=== PATIENT | female | born 1990 | race Caucasian/White ===

== ENCOUNTER 2018-05-04 12:35 | Emergency (ER) | payer BC, OTHER ==
[~2018-05-04] VITALS: Ht 162.6 cm; Wt 57.8 kg
[~2018-05-04 12:35] MED LIST: FAMO20TA7 PO
[2018-05-04 13:28] LABS: BASOPHILS # (AUTO) 0.02 x10^3/uL (0-0.1); BASOPHILS % (AUTO) 0 % (0-1); EOSINOPHILS # (AUTO) 0.07 x10^3/uL (0-0.4); EOSINOPHILS % (AUTO) 1 % (1-7); LYMPHOCYTES # (AUTO) 1.46 x10^3/uL (1-3.4); LYMPHOCYTES % (AUTO) 28 % (22-44); MD NO; MEAN CORPUSCULAR HEMOGLOBIN 31.6 pg (27.0-34.8); MEAN CORPUSCULAR VOLUME 90.2 fL (80-100); MONOCYTES # (AUTO) 0.27 x10^3/uL (0.2-0.8); MONOCYTES % (AUTO) 5 % (2-9); NEUTROPHILS # (AUTO) 3.49 x10^3/uL (1.8-6.8); NEUTROPHILS % (AUTO) 66 % (42-75); PLATELET COUNT 168 x10^3/uL (130-400); RED BLOOD COUNT 4.42 x10^6/uL (3.82-5.3); RED CELL DISTRIBUTION WIDTH 12.3 % (9.6-15.2)
[2018-05-04 13:39] LABS: ALANINE AMINOTRANSFERASE 34 U/L (12-78); ALBUMIN 3.8 g/dL (3.4-5.0); ANION GAP 4 mmol/L (5-15); CALCIUM 8.5 mg/dL (8.5-10.1); CHLORIDE 109 mmol/L (98-107); CREATININE 0.61 mg/dL (0.55-1.02)
[2018-05-04 13:57] LABS: ALKALINE PHOSPHATASE 64 U/L (45-117); BILIRUBIN,TOTAL 0.4 mg/dL (0.2-1.0); TOTAL PROTEIN 7.3 g/dL (6.4-8.2)
--- NOTE | 2018-05-04 14:35 | NUR ---
PT AMBULATORY TO ROOM FROM LOBBY WITH RN. PT REPORTS INTERMITTEN PELVIC PAIN X SEVERAL DAYS. DENIES VAGINAL BLEEDING OR DC/URINARY SYMPTOMS/N/V/D. +, APPROX 6WEEKS. UA COLLECTED AND SENT
[2018-05-04 14:53] LABS: MICROSCOPIC NOT IND
[2018-05-04 15:00] LABS: CULTURE INDICATED? NO
--- NOTE | 2018-05-04 15:53 | NUR ---
PT AMBULATORY TO BATHROOM. REPORT TO BRYAN ZIEGLER
[2018-05-04 16:05] VITALS: BP 105/51
--- NOTE | 2018-05-04 16:06 | NUR ---
REPORT RECEIVED FROM BRYAN WEIR, AWAITING DC PAPERWORK FROM AT THIS TIME.
--- NOTE | 2018-05-04 16:25 | NUR ---
pt was instructed to await dc instructions. when RN returned to discharge pt, pt not found in room. all belongings taken. pt left before receiving dc instructions from RN.
== END 2018-05-04 16:35 | disposition home or self-care (01) ==
LOC: ED 16:15
DX: O20.0 Threatened abortion (principal); Z3A.10 10 weeks gestation of pregnancy
CPT/HCPCS: 36415; 76801; 80053; 81003; 84702; 85025; 99284

== ENCOUNTER 2020-03-27 18:02 | Emergency (ER) | payer SELFPAY ==
[~2020-03-27] VITALS: Ht 157.5 cm; Wt 56.8 kg
[2020-03-27] MEDS ORDERED: L.E.T SOLUTION TP ONE ×2 (18:29→18:30)
[2020-03-27] MEDS ORDERED: PREN1TAB62 PO (18:35)
--- NOTE | 2020-03-27 18:38 | NUR ---
PT IS A 29F COMPLAINING OF RIGHT THUMB PAIN TIMES 2 WEEKS WITH REDNESS, SWELLING, AND DRAINAGE. PROVIDER AT BEDSIDE FOR EVAL. CONTINUOUS SP02, AND CYCLING VITALS IN PLACE. CALL LIGHT WITHIN REACH.
--- NOTE | 2020-03-27 18:52 | NUR ---
report to [employer] ADAMS
--- NOTE | 2020-03-27 18:53 | NUR ---
BEDSIDE REPORT FROM [facility] ADAMS, PT CARE TRANSFERRED AT THIS TIME. PT RESTING ON GURNEY, NAD, APPEARS COMFORTABLE, DENIES ADDITIONAL NEEDS, BED IN LOWEST, RAILS ENGAGED, CALL LIGHT ON LAP, WCTM.
[2020-03-27 19:07] VITALS: BP 88/51
--- NOTE | 2020-03-27 19:36 | NUR ---
Patient given discharge instructions and they have confirmed that they understand the instructions. Patient ambulatory with steady gait. NAD, DENIES ADDITIONAL QUESTIONS OR NEEDS, PROVIDED BANDAGE SUPPLIES, NO PERSONAL BELONGINGS LEFT IN ROOM AFTER DC
== END 2020-03-27 19:37 | disposition home or self-care (01) ==
LOC: ED 18:30
DX: L03.011 Cellulitis of right finger (principal); M79.644 Pain in right finger(s); R20.2 Paresthesia of skin
CPT/HCPCS: 10060; 99283